=== PATIENT | female | born 1955 | race Caucasian/White ===

== ENCOUNTER 2018-05-22 20:11 | Emergency (ER) | payer OTHER, SELFPAY ==
[2018-05-22 20:12] VITALS: BP 164/84; PULSE 81; RESP 18; TEMP 36.2; O2SAT 97; BMI 23.1
--- NOTE | 2018-05-22 21:50 | EKG12_ITS ---
Test Reason : GEN ILL Blood Pressure : / mmHG Vent. Rate : 062 BPM Atrial Rate : 062 BPM P-R Int : 156 ms QRS Dur : 120 ms QT Int : 440 ms P-R-T Axes : 071 062 024 degrees QTc Int : 446 ms Normal sinus rhythm Right bundle branch block Abnormal ECG Confirmed by BRENT MOLINA ([id number]), manager editorial ALFREDO RODRIGUEZ ([id number]) on 05/27/2018 2:40:12 PM Referred By: Madelyn Barfield Confirmed By:BRENT MOLINA
[2018-05-22 22:13] LABS: Absolute Lymphocyte Count 2.51 X10^3/ul (0.83-4.51); Absolute Neutrophil Count 4.7 X10^3/uL (2.0-7.7); Basophil# 0.02 X10^3/uL; Basophil% 0.3 % (0-1); Eosinophil# 0.25 X10^3/uL; Eosinophils% 3.1 % (0-5); Hematocrit 37.9 % (37-47); Hemoglobin 12.8 g/dl (12.0-15.0); Lymphocyte # 2.51 X10^3/ul (4.0); Lymphocyte % 31.4 % (19-41); Mean Corp Hgb Conc 33.8 g/gl (32-36); Mean Corpuscular Hgb 30.3 pg (27.0-32.0); Mean Corpuscular Volume 89.8 fL (81-99); Mean Platelet Vol. 10.6 fl (6.2-12.0); Monocyte# 0.54 X10^3/uL; Monocyte% 6.8 % (0-10); Neutrophil # 4.66 X10^3/uL (2.7-7.7); Neutrophil % 58.3 % (47-70); Platelet Count 190 K/mm3 (150-450); RBC Distribution Width CV 13.2 % (11.6-14.6); Red Blood Count 4.22 M/mm3 (4.2-5.4)
[2018-05-22 22:19] LABS: POSITIVE COUNT NO; POSITIVE DIFFERENTIAL NO; POSITIVE MORPHOLOGY NO
[2018-05-22 22:33] LABS: AST(SGOT) 21 U/L (15-37); Alanine Aminotransfer ALT/SGPT 22 U/L (13-56); Albumin, Serum 4.1 g/dL (3.2-5.0); Alkaline Phosphatase 91 U/L (45-117); Anion Gap 10 (5-15); BUN 11 mg/dL (7-18); BUN/Creat Ratio 12.3 RATIO (10-20); Bilirubin, Direct 0.11 mg/dL (0.00-0.30); Calcium,Total 9.1 mg/dL (8.5-10.1); Chloride 104 mmol/L (98-107); Creatinine, Serum 0.89 mg/dL (0.55-1.02); EST Glomerular Filtration Rate 68 mL/min (>60); Est Glom Filt Rate - Afr Amer 82 mL/min (>60); Estimated Creatinine Clearance 57.46 ml/min; Globulin 3.6 g/dL (2.2-4.2); Glucose 114 mg/dL (74-106); Lipase 257 U/L (73-393); Potassium 3.6 mmol/L (3.5-5.1); Protein, Total 7.7 g/dL (6.4-8.2); Sodium Level 141 mmol/L (136-145)
[2018-05-22 22:39] LABS: Bacteria 0 SEEN /hpf (None Seen); Mucous, Urine 0 SEEN /hpf (<or=2+)
[2018-05-22] MEDS: Morphine 4 MG/ML Syringe IV (22:39)
[2018-05-22] MEDS: Ondansetron 4 MG/2 ML Vial IV (22:39)
[2018-05-22] MEDS: 0.9% Normal Saline 1,000 ML 1000 ML IV (22:39)
[2018-05-22 22:43] LABS: Color, Urine Yellow (Yellow); Glucose, Dipstick Normal (Normal); Ketone-Dipstick Negative (Negative); Leukocyte Esterase-Dipstick 25 /ul (Negative); Nitrite-Dipstick Negative (Negative); Occult Blood-Urine Negative /ul (Negative); Protein-Dipstick Negative (Negative); Urine Bilirubin Dipstick Negative (Negative); Urine Clarity Clear (Clear); Urine Urobilinogen Normal (Normal)
[2018-05-22 22:51] LABS: Red Blood Cells-Urine 0-5 SEEN /hpf (0-5); Squamous Epithelial Cells - UA 0-5 SEEN /hpf (5-10); White Blood Cells 0-5 SEEN /hpf (0-5)
[2018-05-22 22:52] LABS: Lactic Acid 0.7 mmol/L (0.4-2.0)
--- NOTE | 2018-05-23 01:05 | ED.DEP ---
ED Disposition - Plan for ED Patient: Chief Complaint: Abd Pain Instructions: ED Abdominal Pain Unkn Cause Prescriptions: Hydrocodone Bitart/Apap 5-325 [Brandon 5MG-325MG] 1 tablet PO Q6H PRN PRN 3 Days #8 tablet PRN Reason: Pain Referrals: Hua Munroe MD [Primary Care Provider] -
--- NOTE | 2018-05-23 01:15 | ED.VISSUMM ---
- ER Visit Summary Date of Service: 05/23/18 Chief Complaint: Abdominal pain History of Present Illness: The patient is a 63 F presenting with abdominal pain. This has been ongoing for the past 2 days. She complains of pain in the right upper quadrant after eating. She has had this pain in the past. She denies nausea, vomiting, diarrhea. She has a history of constipation. She denies blood in her stool. She also complains of left upper quadrant pain ?2 days which has been constant. Her mother yesterday and she has been under a lot of stress. She has a history of a previous abdominal aortic stent. History of previous appendectomy and hysterectomy. She has a history of fibromuscular dysplasia and she is followed at [facility]. Physical Examination: Vitals are stable. Patient is afebrile. Alert no acute distress. No tachycardia or hypoxia HEENT exam is unremarkable. Neck is supple. Lungs are clear and equal bilaterally. Heart is regular rate and rhythm. Abdomen is soft right upper and left upper quadrant tenderness with no rebound or guarding. Extremities are unremarkable. Skin is warm and dry. No focal neurologic deficit. Remainder of exam is unremarkable. Emergency Department Course and Treatment: EKG is sinus rate of 62 with right bundle branch block. CBC, chemistries unremarkable. Liver lipase are normal. Urinalysis unremarkable. Troponin is negative. Lactic is normal. Patient is given morphine and Zofran with improvement of her pain. Ultrasound gallbladder is normal. CTA abdomen shows 1. Fusiform infrarenal abdominal aortic aneurysm with a maximum diameter of 3.3 cm. 2. Bilateral iliac stents without leakage. 3. Atherosclerotic changes of the celiac artery, SMA and renal arteries without significant stenosis. 4. Degenerative changes lumbar spine. Patient is aware of these findings. She is resting comfortably on re-evaluation. She will be discharged to follow up with her primary care physician. She is advised to return to ED for worsening complaints. Disposition: Discharge home Impression: Abdominal pain This note was generated with [employer] dictation software. It may contain incorrect words, spelling, and punctuation that were not noted in review of the chart prior to signing ED Disposition - Plan for ED Patient: Chief Complaint: Abd Pain Instructions: ED Abdominal Pain Unkn Cause Prescriptions: Hydrocodone Bitart/Apap 5-325 [[place] 5MG-325MG] 1 tablet PO Q6H PRN PRN 3 Days #8 tablet PRN Reason: Pain Referrals: Hua Munroe MD [Primary Care Provider] -
[2018-05-23] MEDS: Morphine 2 MG/ML Syringe IV (01:17)
[2018-05-23 01:26] VITALS: BP 137/78; PULSE 66; RESP 16; O2SAT 99
== END 2018-05-23 01:28 | disposition home or self-care (01) ==
PROVIDERS: Emergency Provider Emergency Medicine; Family Provider Internal Medicine; PCP Internal Medicine
DX: R10.11 Right upper quadrant pain (principal); R10.12 Left upper quadrant pain; I45.10 Unspecified right bundle-branch block; I71.4 Abdominal aortic aneurysm, without rupture; K59.00 Constipation, unspecified; K21.9 Gastro-esophageal reflux disease without esophagitis; I10 Essential (primary) hypertension; E78.00 Pure hypercholesterolemia, unspecified; F32.9 Major depressive disorder, single episode, unspecified; I77.3 Arterial fibromuscular dysplasia; Z90.710 Acquired absence of both cervix and uterus; Z79.82 Long term (current) use of aspirin; Z79.899 Other long term (current) drug therapy; Z72.0 Tobacco use
CPT/HCPCS: 74175; 76705; 80048; 80076; 81001; 83605; 83690; 84484; 85025; 93005; 96361; 96374; 96375; 96376; 99285; Q9967; A4216; J2405

== ENCOUNTER → 2019-06-11 07:43 | Outpatient (CLI) | payer MEDICARE, OTHER, SELFPAY ==
[2019-05-27 07:49] VITALS: BMI 23.1
--- NOTE | 2019-06-11 07:58 | AAVD_ITS ---
Reason For Study: AAA Aorta Measurements Aorta Doppler Measurements Proximal aorta measures1.29 x 1.3cm. in cross- Peak systolic flow velocities within the proximal sectional axis. aorta measure 67.7 cm/sec. Proximal aorta measures1.37cm. in longitudinal Peak systolic flow velocities within the mid aorta axis. measure 38.0 cm/sec. Mid aorta measures3.76 x 3.52cm. in cross- Peak systolic flow velocities within the distal sectional axis. aorta measure 30.3 cm/sec. Mid aorta measures3.41cm. in longitudinal axis. Distal aorta measures1.94 x 2.37cm. in cross- sectional axis. Distal aorta measures1.83cm. in longitudinal axis. Left Iliac Artery Left iliac artery measures .68 x .7 cm. in the longitudinal axis. Left iliac artery measures .73 cm. in the cross-sectional axis. Peak systolic velocity in the left iliac artery measures 130.8 cm/sec. Right Iliac Artery Right iliac artery measures .73 x .7 cm. in the cross-sectional axis. Right iliac artery measures .69 cm. in the longitudinal axis. Peak systolic velocity in the right iliac artery measures 87.5 cm/sec. Procedure Aorta IVC Iliac vasculature or bypass grafts [id number]. The exam was diagnostic. Exam performed in department. Interpretation Summary Infra renal abdominal aortic aneurysm 3.76 x 3.52 cm over a length of 7.2 cm Diminished flow velocity within the mid and distal aorta likely secondary to the presence of the aneurysm Left common iliac 0.68 x 0.7cm normal Right common iliac 0.73 x 0.7 cm normal Ordering Physician: Tommy Muhammad Performed By: Lino Escobedo RVT
== END ==
PROVIDERS: Family Provider Internal Medicine; PCP Internal Medicine; Referring Provider Internal Medicine Cardiovascular Disease; Visit Provider Internal Medicine Cardiovascular Disease
DX: I71.4 Abdominal aortic aneurysm, without rupture (principal); I25.10 Atherosclerotic heart disease of native coronary artery without angina pectoris; Z01.810 Encounter for preprocedural cardiovascular examination; I45.10 Unspecified right bundle-branch block; I73.9 Peripheral vascular disease, unspecified; I10 Essential (primary) hypertension; F17.200 Nicotine dependence, unspecified, uncomplicated; E78.5 Hyperlipidemia, unspecified
CPT/HCPCS: 93306; 93978

== ENCOUNTER 2020-06-03 07:55 | Day surgery (SDC) | payer MEDICARE, OTHER, SELFPAY ==
[2020-05-26 10:21] VITALS: BMI 26.1
--- NOTE | 2020-05-26 11:34 | RAD_ITS ---
HISTORY: CAD, ASHD HX. NO CHEST COMPLAINTS TODAY. PRE-HEART CATH. XR Chest 2 Views TECHNIQUE: Frontal and lateral views of chest. # of images incl. paperwork: 2 COMPARISON: 08/18/2012, FINDINGS: LINES: None. CARDIOVASCULAR STRUCTURES: Normal heart size. Pulmonary vasculature appears normal. LUNGS: Hyperinflated lungs. No confluent areas of acute consolidation. PLEURA: No pleural effusions or pneumothorax. BONES: No acute osseous abnormality of the thorax. RAD/Chest PA and Lateral IMPRESSION: 1. No acute cardiopulmonary disease. 2. Hyperinflated lungs. at 1750 Reported and signed by: Abbe Lucio MD Electronically Signed: Abbe Lucio MD at 17:48 EDT Tel , Service support ,
[2020-05-26 12:44] LABS: Absolute Lymphocyte Count 1.81 X10^3/uL (0.83-4.51); Basophil# 0.04 X10^3/uL; Basophil% 0.5 % (0-1); Eosinophil# 0.22 X10^3/uL; Eosinophils% 2.9 % (0-5); Hematocrit 39.7 % (37-47); Hemoglobin 13.3 g/dL (12.0-15.0); Lymphocyte # 1.81 X10^3/ul (4.0); Lymphocyte % 23.5 % (19-41); Mean Corp Hgb Conc 33.5 g/dL (32-36); Mean Corpuscular Hgb 30.5 pg (27.0-32.0); Mean Corpuscular Volume 91.1 fL (81-99); Mean Platelet Vol. 10.7 fl (6.2-12.0); Monocyte# 0.57 X10^3/uL; Monocyte% 7.4 % (0-10); NRBC Flagged by Analyzer 0 % (0-5); Neutrophil # 5.04 X10^3/uL (2.7-7.7); Neutrophil % 65.3 % (47-70); Platelet Count 211 K/mm3 (150-450); RBC Distribution Width CV 12.4 % (11.6-14.6); RBC Distribution Width SD 41.2 fl (35.1-43.9); Red Blood Count 4.36 M/mm3 (4.2-5.4); White Blood Count 7.7 K/mm3 (4.4-11.0)
[2020-05-26 13:05] LABS: Anion Gap 3 (5-15); BUN 13 mg/dL (7-18); BUN/Creat Ratio 16.9 RATIO (10-20); Calcium,Total 9.4 mg/dL (8.5-10.1); Chloride 105 mmol/L (98-107); Creatinine, Serum 0.77 mg/dL (0.55-1.02); EST Glomerular Filtration Rate 80 mL/min (>60); Est Glom Filt Rate - Afr Amer 96 mL/min (>60); Glucose 95 mg/dL (74-106); Potassium 4.2 mmol/L (3.5-5.1); Sodium Level 139 mmol/L (136-145)
[2020-06-02 06:59] VITALS: BMI 26.1
--- NOTE | 2020-06-03 10:20 | CL.D_ITS ---
Patient Name: JOHANNE KU Study Date: 06/03/2020 Performing: Tommy Muhammad MD Ht: 64.96 inches 165 cm : 1955 Wt: 156.53 lbs 71 kg Age: 65 Gender: female BSA: 1.78 PROCEDURE(S) PERFORMED [id number]/LV CLINICAL PROFILE AND INDICATIONS Indications: Suspected CAD Heart Failure: None Stress/Imaging Stress/Image Study Performed: No Angina Classification Anginal Classification w/in 2 Weeks: CCS I CAD Presentations: Unstable angina. CONCLUSIONS Mild to moderate CAD with no evidence of high-grade stenosis. RECOMMENDATIONS Medical therapy DESCRIPTION OF PROCEDURE The patient arrived to the procedure lab. The risks and benefits of the procedure as well as a full d escription of our services here and current unavailability of surgical backup were fully explained to the patient and/or their significant other prior to the catheterization. The Timeout was completed, verifying the correct patient and procedure. The patient's procedural site was prepped and draped in the usual fashion. Local anesthetic was given subcutaneously to left radial region with Lidocaine 2%. Using a modified Seldinger technique, arterial access was obtained via the right radial artery, a 6F r sheath was inserted. Right Coronary Artery selective angiography was then performed in multiple vi ews using a 5 Fr. 4.0 Upson catheter. Left Coronary Artery selective angiography was performed in mul tiple views using a 5 Fr. 4.0 Upson catheter. Left Ventriculography was performed in TOBAR projection u sing a 5 Fr. Pigtail catheter. LV to AO pullback pressures were then recorded.The arterial sheath was pulled and a TR Band was applied for hemostasis CORONARY ANGIOGRAPHY DOMINANCE: Right Dominant LEFT HEART ASSESSMENT Left Ventricular Ejection Fraction: by LV Gram 60 % Normal LV wall motion Normal Left Ventricular systolic function LEFT MAIN: Angiographically normal LEFT ANTERIOR DESCENDING ARTERY: Moderate luminal irregularities up to 50% CIRCUMFLEX ARTERY: Mild luminal irregularities less than 30% RIGHT CORONARY ARTERY: PROX RCA: Moderate luminal irregularities up to 50% DISTAL RCA: Mild luminal irregularities less than 30% COMPLICATIONS No Complications PROCEDURE MEDICATIONS Versed 1 mg IV Fentanyl 50 mcg IV Oxygen: 2 L/min via nasal cannula Heparin given IA 06/03/2020 10:00:56 Verapamil 2.5mg, Ntg 100mcgs, 2000 units of Heparin given IA 06/03/2020 10:00:56 SUMMARY OF HEMODYNAMIC DATA Time AIR REST ECG 08:18:45 AO 98/17 (33) SA 10:02:58 AO 124/77 (98) 10:03:12 LV 158/10, 22 10:07:53 LV 155/9, 23 10:08:00 LV 152/14, 25 10:08:35 LV 157/15, 25 10:08:42 LVp 156/16, 25 10:08:49 AOp 0/-22 (53) 10:08:54 AO 159/78 (112) 10:09:18 Signed By Tommy Muhammad MD On 06/03/2020 10:19:42 Tommy Muhammad MD
== END 2020-06-03 12:15 | disposition home or self-care (01) ==
LOC: CLSP 07:56
PROVIDERS: PCP Internal Medicine; Referring Provider Internal Medicine Cardiovascular Disease; Visit Provider Internal Medicine Cardiovascular Disease
DX: I25.10 Atherosclerotic heart disease of native coronary artery without angina pectoris (principal); I10 Essential (primary) hypertension; I73.9 Peripheral vascular disease, unspecified; F17.200 Nicotine dependence, unspecified, uncomplicated; R07.9 Chest pain, unspecified; I71.4 Abdominal aortic aneurysm, without rupture; E78.5 Hyperlipidemia, unspecified
CPT/HCPCS: 36415; 71046; 80048; 85025; 93458; 99152; 99153; J7040; Q9967; C1769; C1894

== ENCOUNTER → 2020-06-06 07:52 | Outpatient (CLI) | payer MEDICARE, OTHER, SELFPAY ==
[2020-05-26 10:21] VITALS: BMI 26.1
[2020-06-02 06:59] VITALS: BMI 26.1
--- NOTE | 2020-06-06 07:52 | US_ITS ---
PROCEDURES: ULTRASOUND AORTA REASON FOR EXAM: Female, 65 years old. HX OF AAA TECHNIQUE: Ultrasound evaluation of the aorta was performed with real-time and static etienne-scale imaging. COMPARISON: None. FINDINGS: There is atherosclerotic plaque formation of the abdominal aorta. Aorta measures: Proximal 2.3 cm. Middle 3.8 cm. Distal 1.4 cm. Aorta measure transversely: Proximal 1.8 cm. Middle 3.9 cm. Distal 2.1 cm. Right iliac artery measures: 0.8 cm. Right iliac artery measure transversely: 0.8 cm. Left iliac artery measures: 0.8 cm. Left iliac artery measure transversely: 0.8 cm. Fusiform infrarenal abdominal aortic aneurysm with a transverse dimension of 3.9 cm.. US/Aorta IMPRESSION: Fusiform infrarenal abdominal aortic aneurysm with a transverse dimension of 3.9 cm. Electronically Signed: Shaheen Jones, at 10:59 EDT , Service support ,
--- NOTE | 2020-06-06 08:26 | CDU_ITS ---
Reason For Study: FMD Rt. Velocities/BP Lt. Velocities/BP Prox CCA 70.8/21.3 cm/sec. Prox CCA 87.7/26.5 cm/sec. Mid CCA 60.4/21.3 cm/sec. Mid CCA 63.0/23.9 cm/sec. Dist CCA 52.6/21.3 cm/sec. Dist CCA 52.5/19.9 cm/sec. Prox ICA 113.9/39.5 cm/sec. Prox ICA 96.9/38.2 cm/sec. Mid ICA 99.5/34.3 cm/sec. Mid ICA 117.7/38.2 cm/sec. Dist ICA 94.3/42.1 cm/sec. Dist ICA 100.8/36.9 cm/sec. Rt. ICA/CCA = 1.89. Lt. ICA/CCA = 1.87. Prox ECA 89.1/10.8 cm/sec. Prox ECA 66.9/12.1 cm/sec. Rt. Vert. 63.0/18.6 cm/sec. Lt. Vert. 53.9/14.7 cm/sec. Right Extracranial There is intimal thickening but no significant atherosclerotic plaque noted in the right common carotid artery. There is heterogeneous, irregular atherosclerotic plaque noted in the right internal carotid artery. There is intimal thickening but no significant atherosclerotic plaque noted in the right external carotid artery. Antegrade flow is noted in the right vertebral artery. There is heterogeneous, irregular atherosclerotic plaque noted in the right bulb. Left Extracranial There is homogeneous, smooth atherosclerotic plaque noted in the left common carotid artery. There is intimal thickening but no significant atherosclerotic plaque noted in the left internal carotid artery. There is intimal thickening but no significant atherosclerotic plaque noted in the left external carotid artery. Antegrade flow is noted in the left vertebral artery. There is heterogeneous, irregular atherosclerotic plaque noted in the left bulb. Procedure Carotid Duplex 74087. Exam performed in department. Interpretation Summary Irregular calcific plague distal right common carotid and proximal right internal and external carotids <50% stenosis right internal carotid <50% stensosis right external carotid Intimal thickening left proximal internal carotid with <50% stenosis <50% stenosis left external carotid Patent, antegrade vertebrals bilaterally Ordering Physician: Tommy Muhammad Referring Physician: Hua Munroe M.D. Performed By: Deana Mars RVT and Student
== END ==
PROVIDERS: PCP Internal Medicine; Referring Provider Internal Medicine Cardiovascular Disease; Visit Provider Internal Medicine Cardiovascular Disease
DX: I73.9 Peripheral vascular disease, unspecified (principal); I71.4 Abdominal aortic aneurysm, without rupture; I25.10 Atherosclerotic heart disease of native coronary artery without angina pectoris; E78.5 Hyperlipidemia, unspecified; I10 Essential (primary) hypertension; R42 Dizziness and giddiness; F17.200 Nicotine dependence, unspecified, uncomplicated; M25.531 Pain in right wrist
CPT/HCPCS: 76706; 76775; 93880; 93931

== ENCOUNTER → 2020-08-24 08:59 | Outpatient (CLI) | payer MEDICARE, OTHER, SELFPAY ==
[2020-06-06 15:17] VITALS: BMI 26.1
--- NOTE | 2020-08-24 09:03 | ART_ITS ---
Reason For Study: OCCLUSION OF UPPER EXTREMITY RADIAL ARTERY Procedure A bilateral upper extremity continuous wave Doppler with analog waveform analysis and segmental pressures. Wrist/Brachial Index only. Left Segmental Pressures Left brachial= 118mmHg. Left radial= 130mmHg. Left ulnar= 144mmHg. The left radial waveforms are triphasic. The left ulnar waveforms are triphasic. Right Segmental Pressures Right brachial= 118mmHg. Right radial= 135mmHg. Right ulnar= 134mmHg. The right radial waveforms are monophasic. The right ulnar waveforms are triphasic. Indices The right wrist-brachial index is 1.14. The left wrist-brachial index is 1.22. Interpretation Summary Bilateral normal upper extremity with triphasic flow and WBI 1.14 and 1.22. Ordering Physician: Joon Serna Referring Physician: Hua Munroe Performed By: Aixa Zhao RVT, [facility]
--- NOTE | 2020-08-24 09:03 | ADUL_ITS ---
Reason For Study: OCCLUSION OF UPPER EXTREMITY RADIAL ARTERY RIGHT Right Subclavian velocity = 62.2 cm/sec. Right Axillary velocity = 50.1 cm/sec. Right Brachial velocity = 116.1 cm/sec. Right Radial velocity = 55.5 cm/sec. Right Ulnar velocity = 86.7 cm/sec. Interpretation Summary Right arm with no stenosis. Ordering Physician: Joon Serna Referring Physician: Hua Munroe Performed By: Aixa Zhao, MARCOS, RVT
== END ==
PROVIDERS: PCP Internal Medicine; Referring Provider Surgery Vascular Surgery; Visit Provider Surgery Vascular Surgery
DX: I74.2 Embolism and thrombosis of arteries of the upper extremities (principal)
CPT/HCPCS: 93922; 93926

== ENCOUNTER → 2021-08-17 09:07 | Outpatient (CLI) | payer MEDICARE, OTHER, SELFPAY ==
--- NOTE | 2021-08-17 09:11 | ART_ITS ---
Reason For Study: PVD Procedure A bilateral lower extremity continuous wave Doppler with analog waveform analysis and ankle brachial indexes. Left Segmental Pressures Left brachial= 123mmHg. Left posterior tibial artery = 127mmHg. Left dorsalis pedis artery = 133mmHg. The left dorsalis pedis waveforms are triphasic. The left posterior tibial artery waveforms are triphasic. Right Segmental Pressures Right brachial= 121mmHg. Right posterior tibial artery = 128mmHg. Right dorsalis pedis artery = 135mmHg. The right dorsalis pedis waveforms are triphasic. The right posterior tibial artery waveforms are triphasic. Indices The right ankle brachial index by the dorsalis pedis is 1.10. The right ankle brachial index by the posterior tibial artery is 1.04. The left ankle brachial index by the dorsalis pedis is 1.08. The left ankle brachial index by the posterior tibial artery is 1.03. VL/Ankle Brachial Index Interpretation Summary Bilateral lower extremities with no evidence of occlusive disease at rest. With bilateral triphasic flow and an KELTON 1.1 and 1.08. Ordering Physician: Joon Serna Referring Physician: Hua Munroe M.D. Performed By: Deana Mars RVT
--- NOTE | 2021-08-17 09:11 | AAVD_ITS ---
Reason For Study: AAA Aorta Measurements Aorta Doppler Measurements Proximal aorta measures2.35 x 2.36cm. in cross- Peak systolic flow velocities within the proximal sectional axis. aorta measure 52.4 cm/sec. Proximal aorta measures1.27cm. in longitudinal Peak systolic flow velocities within the mid aorta axis. measure 72.9 cm/sec. Mid aorta measures4.19 x 4.37cm. in cross- Peak systolic flow velocities within the distal sectional axis. aorta measure 24.9 cm/sec. Mid aorta measures4.14cm. in longitudinal axis. Distal aorta measures2.83 x 2.89cm. in cross- sectional axis. Distal aorta measures2.81cm. in longitudinal axis. Mural thrombus noted in the Aorta mid-distal. Mid true lumen, 3.38 x 3.43 x 3.24 cm. Distal true lumen, 1.88 x 2.28 x 1.86 cm. Left Iliac Artery Left iliac artery measures 0.76 x 0.76 cm. in the cross-sectional axis. Left iliac artery measures 0.73 cm. in the longitudinal axis. Peak systolic velocity in the left iliac artery measures 81.4 cm/sec. Right Iliac Artery Right iliac artery measures 0.65 x 0.68 cm. in the cross-sectional axis. Right iliac artery measures 0.66 cm. in the longitudinal axis. Peak systolic velocity in the right iliac artery measures 103.4 cm/sec. Procedure Aorta IVC Iliac vasculature or bypass grafts [id number]. Exam performed in department. VL/Abd Aortic/IVC Duplex scan Interpretation Summary Aortic aneurysm measuring 4.4 cm. Ordering Physician: Joon Serna Referring Physician: Hua Munroe M.D. Performed By: Deana Mars RVT
== END ==
PROVIDERS: PCP Internal Medicine; Visit Provider Surgery Vascular Surgery
DX: I73.9 Peripheral vascular disease, unspecified (principal); I71.4 Abdominal aortic aneurysm, without rupture; Z86.718 Personal history of other venous thrombosis and embolism
CPT/HCPCS: 93922; 93978

== ENCOUNTER → 2022-09-06 | Outpatient (CLI) | payer MEDICARE, OTHER, SELFPAY ==
--- NOTE | 2022-09-06 08:52 | AAVD_ITS ---
Reason For Study: AAA Aorta Measurements Aorta Doppler Measurements Proximal aorta measures2.07 x 2.07cm. in cross- Peak systolic flow velocities within the proximal sectional axis. aorta measure 67.8 cm/sec. Proximal aorta measures2.09cm. in longitudinal Peak systolic flow velocities within the mid aorta axis. measure 48.3 cm/sec. Mid aorta measures4.51 x 4.61cm. in cross- Peak systolic flow velocities within the distal sectional axis. aorta measure 27.4 cm/sec. Mid aorta measures4.16cm. in longitudinal axis. Distal aorta measures2.90 x 2.87cm. in cross- sectional axis. Distal aorta measures2.94cm. in longitudinal axis. Mural thrombus noted in the Aorta mid-distal. Mid true lumen, 3.38 x 4.48 x 3.10 cm. Left Iliac Artery Left iliac artery measures 0.84 x 0.83 cm. in the cross-sectional axis. Left iliac artery measures 0.79 cm. in the longitudinal axis. Peak systolic velocity in the left iliac artery measures 105.7 cm/sec. Right Iliac Artery Right iliac artery measures 0.75 x 0.72 cm. in the cross-sectional axis. Right iliac artery measures 0.65 cm. in the longitudinal axis. Peak systolic velocity in the right iliac artery measures 94.8 cm/sec. VL/Abd Aortic/IVC Duplex scan Interpretation Summary Aortic aneurysm 4.5 x 4.6cm. Ordering Physician: Joon Serna Referring Physician: Hua Munroe M.D. Performed By: Deana Mars RVT
--- NOTE | 2022-09-06 08:52 | ART_ITS ---
Reason For Study: PVD Procedure A bilateral lower extremity continuous wave Doppler with analog waveform analysis and ankle brachial indexes. Left Segmental Pressures Left brachial= 137mmHg. Left posterior tibial artery = 142mmHg. Left dorsalis pedis artery = 148mmHg. Left digit = 126 mmHg. The left dorsalis pedis waveforms are biphasic. The left posterior tibial artery waveforms are biphasic. Right Segmental Pressures Right brachial= 142mmHg. Right posterior tibial artery = 159mmHg. Right dorsalis pedis artery = 140mmHg. Right digit = 114 mmHg. The right dorsalis pedis waveforms are biphasic. The right posterior tibial artery waveforms are triphasic. Indices The right ankle brachial index by the dorsalis pedis is 0.99. The right ankle brachial index by the posterior tibial artery is 1.12. The right digital-brachial index is 0.80. The left ankle brachial index by the dorsalis pedis is 1.04. The left ankle brachial index by the posterior tibial artery is 1.00. The left digital-brachial index is 0.89. VL/Ankle Brachial Index Interpretation Summary Bilateral triphasic flow and adriana 1.12 and 1.04. Ordering Physician: Joon Serna Referring Physician: Hua Munroe M.D. Performed By: Deana Mars RVT
--- NOTE | 2022-09-06 08:52 | CDU_ITS ---
Reason For Study: Carotid stenosis Rt. Velocities/BP Lt. Velocities/BP Prox CCA 65.5/22 cm/sec. Prox CCA 82.6/26.2 cm/sec. Mid CCA 53.2/19.2 cm/sec. Mid CCA 79/20 cm/sec. Dist CCA 57.9/22 cm/sec. Dist CCA 75.3/18.8 cm/sec. Prox ICA 146.7/55.3 cm/sec. Prox ICA 80.2/26.2 cm/sec. Mid ICA 106.5/44.4 cm/sec. Mid ICA 92.5/39.7 cm/sec. Dist ICA 95.5/33.4 cm/sec. Dist ICA 96.1/37.2 cm/sec. Rt. ICA/CCA = 2.53. Lt. ICA/CCA = 1.22. Prox ECA 86.3/19.2 cm/sec. Prox ECA 80.2/12.6 cm/sec. Rt. Vert. 90/24.9 cm/sec. Lt. Vert. 46.5/21.2 cm/sec. Right Extracranial There is intimal thickening but no significant atherosclerotic plaque noted in the right common carotid artery. There is heterogeneous, irregular atherosclerotic plaque noted in the right internal carotid artery. There is heterogeneous, irregular atherosclerotic plaque noted in the right external carotid artery. Antegrade flow is noted in the right vertebral artery. Left Extracranial There is intimal thickening but no significant atherosclerotic plaque noted in the left common carotid artery. There is homogeneous, smooth atherosclerotic plaque noted in the left internal carotid artery. There is homogeneous, smooth atherosclerotic plaque noted in the left external carotid artery. Antegrade flow is noted in the left vertebral artery. Procedure Carotid Duplex 65854. This is a Carotid Duplex examination using B-mode, color flow and specral Doppler. Exam performed in department. VL/Carotid Duplex Ultrasound Interpretation Summary Moderate (50-69%) stenosis right extracranial internal carotid. Mild (<50%) zachariah nosis left extracranial internal carotid. Flow within the vertebral arteries is antegrade bilaterally. Ordering Physician: Joon Serna Referring Physician: Hua Munroe M.D. Performed By: Deana Mars RVT
== END | disposition home or self-care (01) ==
LOC: CVS 08:50
PROVIDERS: PCP Internal Medicine; Visit Provider Surgery Vascular Surgery
DX: I73.9 Peripheral vascular disease, unspecified (principal); I72.8 Aneurysm of other specified arteries; Z86.718 Personal history of other venous thrombosis and embolism; I65.23 Occlusion and stenosis of bilateral carotid arteries
CPT/HCPCS: 93880; 93922; 93978

== ENCOUNTER → 2022-10-30 | Outpatient (CLI) | payer MEDICARE, SELFPAY ==
--- NOTE | 2022-10-30 | CYSPIN_PTH ---
PATIENT: JOHANNE KU LOC: [facility] U#:[id number] AGE/SX: 67/F ROOM: RE10/30/[address]: Dr. Deborah Boudreaux MD : 1955 BED: DIS: 10/30/2022 SPEC #: [id number] RECD: 10/31/22 08:42 STATUS: TIFFANIE NICHOLS #: [id number] MAGGIE: 10/30/22 00:[address]: Deborah Boudreaux DEPT: CYTOLOGY RECD BY: Keshav Nascimento ENTERED: 10/31/22 08:43 SP TYPE: CYSPIN FL OTHR DR: Dr. Hua Munroe MD Tissues: Urine Procedures: Pap Stain (control) Special Stain Group II Cytospin Fluid HEADER OPERATION: Not noted PRE-OP DIAGNOSIS: Gross hematuria TISSUE SUBMITTED: Urine for cytology DIAGNOSIS CYTOLOGY Urine for cytology (cytospin): Negative for high-grade urothelial carcinoma (OHGUC), Karen System Category II. See comment. SJ:allen 10/31/2022 COMMENT Red blood cells are noted in the specimen. The Karen System for urine cytology diagnostic categorization was used in the evaluation of this case. CYTOLOGY STUDY Slides are reviewed. CYTOLOGY GROSS Received is 20 ml of gold clear fluid labeled with the patient's name and and designated per the requisition as urine. Submitted for cytology preparation. / allen 10/30/2022 TC:5 CPT: 41097
[2022-10-30 12:22] LABS: Anion Gap 5 (5-15); BUN 13 mg/dL (7-18); Calcium,Total 9.2 mg/dL (8.5-10.1); Chloride 106 mmol/L (98-107); Creatinine, Serum 0.81 mg/dL (0.55-1.02); EST Glomerular Filtration Rate 74 mL/min (>60); Est Glom Filt Rate - Afr Amer 90 mL/min (>60); Glucose 111 mg/dL (74-106); Potassium 4.3 mmol/L (3.5-5.1); Sodium Level 140 mmol/L (136-145)
[2022-10-30 18:14] LABS: Cytology, Body Fluid / CSF SEE PATHOLOGY REPORT
== END | disposition home or self-care (01) ==
PROVIDERS: PCP Internal Medicine; Referring Provider Urology; Visit Provider Urology
DX: R31.0 Gross hematuria (principal)
CPT/HCPCS: 36415; 80048; 88108; 88313

== ENCOUNTER → 2022-11-05 | Outpatient (CLI) | payer MEDICARE, SELFPAY ==
--- NOTE | 2022-11-05 18:00 | CT_ITS ---
INDICATION: GROSS HEMATURIA EXAMINATION: CT ABDOMEN AND PELVIS WITH AND WITHOUT CONTRAST - CT Abdomen And Pelvis WO/W Contrast Injection TECHNIQUE: Helically acquired images were obtained of the abdomen and pelvis both before and after IV contrast. Venous and delayed postcontrast phases obtained. A radiation dose optimization technique was used for this scan. IV Contrast dosage and agent: 100 mL Isovue-370 Oral contrast: None. COMPARISON: May 22, 2018. CT. August 17, 2021 ultrasound FINDINGS: LOWER CHEST: Lung bases are clear. No cardiomegaly or pericardial effusion. KIDNEYS AND URETERS: Normal renal size and position. No hydronephrosis. No nephrolithiasis. Normal renal cortical appearance without cystic or solid mass. No urothelial thickening along the renal pelvis or ureters on delayed phase. Portion of the distal right ureter is not opacified, limiting evaluation. LIVER: Homogeneous. No focal mass. GALLBLADDER AND BILIARY TREE: No calcified gallstones. No gallbladder distension or wall edema. No intra- or extrahepatic biliary ductal dilation. PANCREAS: No focal cystic or solid mass. SPLEEN: Normal size without focal cystic or solid mass. ADRENAL GLANDS: No nodules. PERITONEUM: No ascites or free air. No other fluid collection. BOWEL: No evidence of acute appendicitis. No stomach or bowel distension. No focal inflammatory change. LYMPH NODES: No enlarged mesenteric or retroperitoneal lymph nodes. VESSELS: Aortic atherosclerosis with infrarenal fusiform aneurysmal dilatation to 4.7 cm, increased from 3.9 cm on May 22, 2018, beginning immediately inferior to the renal arteries spanning a length of 6.3 cm terminating at level of prior inferior aortic repair. No evidence of aortic rupture.. URINARY BLADDER: Nondistended. Bladder wall evaluation is limited by beam hardening artifact from hip arthroplasty.. REPRODUCTIVE ORGANS: No evidence of pelvic masses. Anterior pelvic evaluation limited by beam hardening artifact with suggestion of prior hysterectomy. ABDOMINAL WALL: No discrete abdominal or pelvic wall hernia. BONES: No lytic or blastic abnormality. Lower lumbar facet arthropathy. Levocurvature lumbar spine. Bilateral hip arthroplasty. CT/CT Abd/Pelvis W/WO Contrast IMPRESSION: No nephrolithiasis or suspicious finding for upper tract neoplasm. Distal right ureter evaluation is limited by lack of contrast enhancement. Bladder evaluation limited by beam hardening artifact from hip arthroplasty. Interval enlargement of infrarenal aortic aneurysm to 4.7 cm ( previously 3.9 cm on May 22, 2018 CT and 4.4 cm August 17, 2021 ultrasound) terminating just cephalad to what appears to be prior aortic repair. Electronically Signed: Kaiser Morgan MD at 5:32 EST ,
== END | disposition home or self-care (01) ==
LOC: CT 17:39
PROVIDERS: PCP Internal Medicine; Referring Provider Urology; Visit Provider Urology
DX: R31.0 Gross hematuria (principal)
CPT/HCPCS: 74178; Q9967

== ENCOUNTER → 2023-05-06 | Outpatient (CLI) | payer MEDICARE, SELFPAY ==
--- NOTE | 2023-05-06 16:51 | CT_ITS ---
EXAM: CT ABDOMEN AND PELVIS WITH INTRAVENOUS CONTRAST CLINICAL INDICATION: LOWER ABD PAIN TECHNIQUE: Helically acquired images were obtained of the abdomen and pelvis with intravenous contrast. This CT exam was performed using one or more of the following dose reduction techniques: automated exposure control, adjustment of the mA and/or kV according to patient size, and/or use of iterative reconstruction technique. CONTRAST: Oral and amp;amp; IV Readi-CAT and amp;amp; 100mL Isovue-300 COMPARISON: CT Abdomen Pelvis dated 11/05/2022 FINDINGS: LOWER THORAX: Normal. Lung bases are clear. No cardiomegaly. No pericardial effusion. ABDOMEN: LIVER: Normal. Homogeneous. No focal mass. PANCREAS: Normal. No focal cystic or solid mass. SPLEEN: Normal. Normal size without focal cystic or solid mass. ADRENALS: Normal. No nodules. KIDNEYS AND URETERS: Normal. Normal renal size and position. No hydronephrosis. STOMACH AND BOWEL: Mild stool burden within the large bowel. PELVIS: APPENDIX: No evidence of acute appendicitis. BLADDER: Urinary bladder is not adequately visualized secondary to significant artifacts from the bilateral hip prostheses. REPRODUCTIVE: Uterus is absent. ABDOMEN and PELVIS: INTRAPERITONEAL SPACE: Normal. No ascites or other fluid collection. No free air. BONES/JOINTS: See above. SOFT TISSUES: Normal. No discrete abdominal or pelvic wall hernia. VASCULATURE: Stable 4.6 cm infrarenal abdominal aortic aneurysm extending to the prior area of aortic repair at the bifurcation. Aneurysm measures 8 cm in length. LYMPH NODES: Normal. No enlarged lymph nodes. CT/Abdomen/Pelvis WITH Contrast IMPRESSION: 1. Stable 4.6 cm infrarenal abdominal aortic aneurysm. 2. Constipation. Electronically Signed: Todd Burleson MD at 16:58 EDT ,
[2023-05-06 17:18] LABS: CREATININE FINGERSTICK < 0.9 mg/dL (0.55-1.02); EGFR FINGERSTICK > 60.0000 mL/min (>60)
== END | disposition home or self-care (01) ==
LOC: CT 16:50
PROVIDERS: PCP Internal Medicine; Referring Provider Physician Assistant Surgical; Visit Provider Physician Assistant Surgical
DX: R10.30 Lower abdominal pain, unspecified (principal)
CPT/HCPCS: 74177; Q9967

== ENCOUNTER → 2023-09-10 | Outpatient (CLI) | payer MEDICARE, SELFPAY ==
--- NOTE | 2023-09-10 08:55 | AAVD_ITS ---
Reason For Study: AAA Aorta Measurements Aorta Doppler Measurements Proximal aorta measures2.14 x 2.12cm. in cross- Peak systolic flow velocities within the proximal sectional axis. aorta measure 65.1 cm/sec. Proximal aorta measures2.10cm. in longitudinal Peak systolic flow velocities within the mid aorta axis. measure 68.7 cm/sec. Mid aorta measures4.64 x 4.39cm. in cross- Peak systolic flow velocities within the distal sectional axis. aorta measure 20.7 cm/sec. Mid aorta measures6.43cm. in longitudinal axis. Distal aorta measures3.00 x 3.15cm. in cross- sectional axis. Distal aorta measures2.96cm. in longitudinal axis. Left Iliac Artery Left iliac artery measures 0.77 x 0.75 cm. in the cross-sectional axis. Left iliac artery measures 0.74 cm. in the longitudinal axis. Peak systolic velocity in the left iliac artery measures 114.9 cm/sec. Right Iliac Artery Right iliac artery measures 0.83 x 0.83 cm. in the cross-sectional axis. Right iliac artery measures 0.81 cm. in the longitudinal axis. Peak systolic velocity in the right iliac artery measures 114.9 cm/sec. VL/Abd Aortic/IVC Duplex scan Interpretation Summary 4.64cm aortic aneurysm. Ordering Physician: MD Joon Serna Referring Physician: Hua Munroe M.D. Performed By: Deana Mars RVT
--- NOTE | 2023-09-10 08:55 | ART_ITS ---
Reason For Study: Atherosclerosis Procedure A bilateral lower extremity continuous wave Doppler with analog waveform analysis and ankle brachial indexes. Left Segmental Pressures Left brachial= 103mmHg. Left posterior tibial artery = 132mmHg. Left dorsalis pedis artery = 149mmHg. Left digit = 88 mmHg. The left dorsalis pedis waveforms are biphasic. The left posterior tibial artery waveforms are biphasic. Right Segmental Pressures Right brachial= 123mmHg. Right posterior tibial artery = 144mmHg. Right dorsalis pedis artery = 124mmHg. Right digit = 99 mmHg. The right dorsalis pedis waveforms are biphasic. The right posterior tibial artery waveforms are triphasic. Indices The right ankle brachial index by the dorsalis pedis is 1.01. The right ankle brachial index by the posterior tibial artery is 1.07. The right digital-brachial index is 0.80. The left ankle brachial index by the dorsalis pedis is 1.21. The left ankle brachial index by the posterior tibial artery is 1.07. The left digital-brachial index is 0.72. VL/Ankle Brachial Index Interpretation Summary No evidence occlusive disease at rest with KELTON 1.07 and 1.21. Ordering Physician: Joon Serna Referring Physician: Hua Munroe M.D. Performed By: Deana Mars RVT
--- NOTE | 2023-09-10 08:55 | CDU_ITS ---
Reason For Study: Carotid stenosis Rt. Velocities/BP Lt. Velocities/BP Prox CCA 68.3/17.3 cm/sec. Prox CCA 77.7/20 cm/sec. Mid CCA 65.5/20.1 cm/sec. Mid CCA 64.4/20 cm/sec. Dist CCA 55.1/21.1 cm/sec. Dist CCA 63/18.8 cm/sec. Prox ICA 171.9/64.3 cm/sec. Prox ICA 82.6/24.9 cm/sec. Mid ICA 122.9/49.9 cm/sec. Mid ICA 101/38.9 cm/sec. Dist ICA 97.4/37.1 cm/sec. Dist ICA 97.4/40.7 cm/sec. Rt. ICA/CCA = 2.62. Lt. ICA/CCA = 1.57. Prox ECA 115.8/20 cm/sec. Prox ECA 69.1/12.6 cm/sec. Rt. Vert. 97.4/37.1 cm/sec. Right Extracranial There is intimal thickening but no significant atherosclerotic plaque noted in the right common carotid artery. There is heterogeneous, irregular atherosclerotic plaque noted in the right internal carotid artery. The atherosclerotic plaque causes acoustic shadowing. There is heterogeneous, irregular atherosclerotic plaque noted in the right external carotid artery. Antegrade flow is noted in the right vertebral artery. Left Extracranial There is intimal thickening but no significant atherosclerotic plaque noted in the left common carotid artery. There is homogeneous, smooth atherosclerotic plaque noted in the left internal carotid artery. There is homogeneous, smooth atherosclerotic plaque noted in the left external carotid artery. Left vertebral artery has bidiectional wabeorm noted. VL/Carotid Duplex Ultrasound Interpretation Summary Moderate (50-69%) stenosis right extracranial internal carotid. Mild (<50%) zachariah nosis left extracranial internal carotid. Flow within the right verterbral artery is anteg rade. Flow within the left verterbral artery is bidirectional, consistent with subclavian steal pheno madelin. Ordering Physician: Joon Serna Referring Physician: Hua Munroe M.D. Performed By: Deana Mars RVT
== END | disposition home or self-care (01) ==
PROVIDERS: PCP Internal Medicine; Referring Provider Surgery Vascular Surgery; Visit Provider Surgery Vascular Surgery
DX: I71.40 Abdominal aortic aneurysm, without rupture, unspecified (principal); I73.9 Peripheral vascular disease, unspecified; I65.23 Occlusion and stenosis of bilateral carotid arteries; Z86.718 Personal history of other venous thrombosis and embolism
CPT/HCPCS: 93880; 93922; 93978

== ENCOUNTER → 2024-08-07 | Outpatient (CLI) | payer MEDICARE, SELFPAY ==
--- NOTE | 2024-08-07 14:15 | CT_ITS ---
INDICATION: Chest and back pain EXAMINATION: CTA abdomen and pelvis - TECHNIQUE: Routine abdominal CT angiogram protocol was performed with IV contrast. MIP images provided. A radiation dose optimization technique was used for this scan. IV Contrast dosage and agent: 100 mL Isovue-370 contrast Radiation dose DLP mGy / cm. COMPARISON: 05/06/2023. FINDINGS: Lung bases: Normal. Liver: Normal. No bile ductal dilatation. Gallbladder: Normal. Spleen: Normal. Adrenal gland: Normal. Kidneys: Normal. No hydronephrosis or stone formation. Pancreas:Normal. Bowel gas pattern: Nonobstructive. Retained stool noted throughout the colon. Appendix: Appendix not identified. No inflammatory changes along the cecum present. Free air: None. Free fluid: None. Pelvis: Pelvic organs: No mass lesion noted. Bone survey: No aggressive bony lesions. No acute fractures. 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 Bilateral hip replacements free of complication Adenopathy: No significant pathologic adenopathy detected. Other: None. Vascular: There is a peripherally calcified infrarenal abdominal aortic aneurysm measuring 5.05 x 4.94 cm in greatest transverse dimensions. This represents a slight increase in size compared to the previous study. It again measures approximately 8 cm in length. No retroperitoneal fluid to suspect leak. CT/CTA Abd/Pelvis W/WO Contrast IMPRESSION: Slight increase in size of a previously noted infrarenal abdominal aortic aneurysm with mural thrombus and peripheral calcifications. On the previous study it measured 4.6 cm in greatest dimension on current study it measures 5.05 cm in greatest dimension. No retroperitoneal fluid to suspect a leak. No suspicious solid organ abnormality No free intraperitoneal fluid, air, or suspicious adenopathy Retained stool Degenerative bony changes Electronically Signed: Michael Joseph MD at 14:53 EST ,
--- NOTE | 2024-08-07 14:16 | ART_ITS ---
Reason For Study: pvd Procedure A bilateral lower extremity continuous wave Doppler with analog waveform analysis and ankle brachial indexes. Left Segmental Pressures Left brachial= 134mmHg. Left posterior tibial artery = 151mmHg. Left dorsalis pedis artery = 156mmHg. Left digit = 117 mmHg. The left posterior tibial artery waveforms are biphasic. The left dorsalis pedis waveforms are triphasic. Right Segmental Pressures Right brachial= 145mmHg. Right posterior tibial artery = 145mmHg. Right dorsalis pedis artery = 155mmHg. Right digit = 98 mmHg. The right posterior tibial artery waveforms are biphasic. The right dorsalis pedis waveforms are triphasic. Indices The right ankle brachial index by the posterior tibial artery is 1.00. The right ankle brachial index by the dorsalis pedis is 1.07. The right digital-brachial index is 0.68. The left ankle brachial index by the posterior tibial artery is 1.04. The left ankle brachial index by the dorsalis pedis is 1.08. The left digital-brachial index is 0.81. VL/Ankle Brachial Index Interpretation Summary Resting ankle-brachial indices appear bilaterally normal. Ordering Physician: Joon Serna Referring Physician: Hua Munroe M.D. Performed By: Armin Moreno RVT
[2024-08-07 14:42] LABS: CREATININE FINGERSTICK < 1.0 mg/dL (0.55-1.02); EGFR FINGERSTICK > 60.0000 mL/min (>60)
== END | disposition home or self-care (01) ==
LOC: CT 14:14
PROVIDERS: PCP Internal Medicine; Referring Provider Surgery Vascular Surgery; Visit Provider Surgery Vascular Surgery
DX: Z01.812 Encounter for preprocedural laboratory examination (principal); I74.2 Embolism and thrombosis of arteries of the upper extremities; I71.43 Infrarenal abdominal aortic aneurysm, without rupture; I65.23 Occlusion and stenosis of bilateral carotid arteries; I73.9 Peripheral vascular disease, unspecified; K21.9 Gastro-esophageal reflux disease without esophagitis; E78.70 Disorder of bile acid and cholesterol metabolism, unspecified; I10 Essential (primary) hypertension; Z86.718 Personal history of other venous thrombosis and embolism; F32.A Depression, unspecified
CPT/HCPCS: 74174; 93922; Q9967

== ENCOUNTER 2025-01-14 19:38 | Emergency (ER) | payer MEDICARE, SELFPAY ==
[2025-01-14 19:42] VITALS: BP 100/62; PULSE 98; RESP 19; TEMP 36.6; O2SAT 96; BMI 21.2
[2025-01-14 19:48] VITALS: BP 100/62; PULSE 95; RESP 19; TEMP 36.6; O2SAT 96
[2025-01-14 20:36] LABS: Mucous, Urine 0 SEEN /hpf (<or=2+); Red Blood Cells-Urine 0 SEEN /hpf (0-5); Squamous Epithelial Cells - UA 0 SEEN /hpf (5-10)
--- NOTE | 2025-01-14 20:41 | EKG12_ITS ---
Test Reason : DYSRHYTHMIA Blood Pressure : */* mmHG Vent. Rate : 83 BPM Atrial Rate : 83 BPM P-R Int : 116 ms QRS Dur : 106 ms QT Int : 396 ms P-R-T Axes : 70 52 6 degrees QTcB Int : 465 ms Normal sinus rhythm Normal ECG Confirmed by RAMY SHANE, HECTOR ([id number]), online content editor LISSETTE CAMPOS ([id number]) on 01/15/2025 8:21:23 AM Referred By: Frank Erazo Confirmed By: HECTOR MCCANN MD
--- NOTE | 2025-01-14 20:41 | CT_ITS ---
PROCEDURE: CTA CHEST W/WO CONTRAST 01/14/2025 REASON FOR EXAM: DYSPNEA, RECENT SURGERY TECHNIQUE: CTA axial imaging of the chest with intravenous contrast. Multiplanar and multisequence images were obtained. PATIENT PREPARATION: Per protocol One or more dose reduction techniques were used (e.g., Automated exposure control, adjustment of the mA and/or kV according to patient size, use of iterative reconstruction technique). CONTRAST: Omnipaque 350 VOLUME: 100 mL Not Provided Gauge IV RADIATION DOSE SUMMARY: . COMPARISON: None FINDINGS: Hardware: None Lymph nodes: No suspicious adenopathy Heart: No cardiomegaly. Severe coronary artery calcifications. Thoracic Aorta: No thoracic aortic aneurysm or dissection. Moderate atherosclerotic calcifications. Pulmonary Vessels: No large central pulmonary emboli are identified. Contrast timing is suboptimal for evaluation of more distal branches. Most Proximal Level of Embolus (if embolus present): Absent Lungs and Airways: Central airways are patent without endobronchial lesions. Moderate upper lobe predominant centrilobular emphysema. Biapical scarring. No focal consolidation. No pneumothorax. Small pleural effusion with atelectasis.. No suspicious pulmonary nodules. Upper Abdomen: Partially imaged juxtarenal aortic aneurysm, with irregularity along its course, likely from recent postoperative changes. Bones: Degenerative changes of the thoracic spine. CT/CTA Chest W/WO Contrast IMPRESSION: 1. No evidence of pulmonary embolism. 2. Small left pleural effusion with atelectasis. 3. Moderate emphysema. 4. Partially imaged juxtarenal aortic aneurysm with wall irregularity, likely f rom recent postoperative changes. Reading Location: [facility]
[2025-01-14 20:43] LABS: Color, Urine Yellow (Yellow); Glucose, Dipstick Normal (Normal); Ketone-Dipstick Negative (Negative); Leukocyte Esterase-Dipstick 500 /ul (Negative); Nitrite-Dipstick Negative (Negative); Occult Blood-Urine 25 /ul (Negative); Protein-Dipstick 30 mg/dl (Negative); Urine Bilirubin Dipstick Negative (Negative); Urine Clarity Clear (Clear); Urine Urobilinogen 1 mg/dl (Normal)
[2025-01-14 20:48] VITALS: BP 125/74; PULSE 101; RESP 18; TEMP 36.6; O2SAT 94
[2025-01-14 21:00] VITALS: BP 125/74; PULSE 101; RESP 18; TEMP 36.6; O2SAT 94
[2025-01-14 21:01] LABS: Absolute Lymphocyte Count 1.34 X10^3/uL (0.83-4.51); Absolute Neutrophil Count 8.9 X10^3/uL (2.0-7.7); Basophil# 0.04 X10^3/uL; Basophil% 0.4 % (0-1); Eosinophil# 0.17 X10^3/uL; Eosinophils% 1.5 % (0-5); Hematocrit 35.8 % (37-47); Hemoglobin 12.2 g/dL (12.0-15.0); Lymphocyte # 1.34 X10^3/ul (0.83-4.51); Mean Corp Hgb Conc 34.1 g/dL (32-36); Mean Corpuscular Hgb 30.2 pg (27.0-32.0); Mean Corpuscular Volume 88.6 fL (81-99); Mean Platelet Vol. 9.5 fl (6.2-12.0); Monocyte# 0.42 X10^3/uL; Monocyte% 3.8 % (0-10); NRBC Flagged by Analyzer 0 % (0-5); Neutrophil # 8.93 X10^3/uL (2.7-7.7); Neutrophil % 79.9 % (47-70); Platelet Count 346 K/mm3 (150-450); RBC Distribution Width CV 12.5 % (11.6-14.6); RBC Distribution Width SD 40.2 fl (35.1-43.9); Red Blood Count 4.04 M/mm3 (4.2-5.4); White Blood Count 11.2 K/mm3 (4.4-11.0)
[2025-01-14 21:24] LABS: Anion Gap 11 (5-15); BUN 9 mg/dL (4-19); BUN/Creat Ratio 12.5 RATIO (10-20); Calcium,Total 9.3 mg/dL (7.6-11.0); Carbon Dioxide 24.6 mmol/L (21.0-32.0); Chloride 97 mmol/L (98-108); Creatinine, Serum 0.74 mg/dL (0.70-1.20); EST Glomerular Filtration Rate 87 (>60); Glucose 152 mg/dL (70-99); Potassium 3.6 mmol/L (3.3-5.1); Sodium Level 133 mmol/L (133-145); Troponin T High Sensitivity 25 ng/L (<=14)
[2025-01-14] MEDS: 0.9% Normal Saline (1000mL) 1,000 ML 999 ML IV (21:28)
--- NOTE | 2025-01-14 21:33 | EX.ED.DYSGE1 ---
HPI <GRACE Orlando - Last Filed: 01/14/25 22:02> History of Present Illness Chief Complaint: General Illness Narrative Narrative: Patient presenting today due to an episode of dyspnea, itching to her hands and groin, and diaphoresis that occurred this evening. She reports that the whole episode lasted about 30 minutes and then resolved. Her daughter became concerned and called EMS, she was then brought here for evaluation. She just had an abdominal aneurysm repair performed by Dr. Covarrubias at the [facility]. This was done on 01/04/2025, she was discharged home yesterday. She denies having any abdominal pain, nausea, vomiting, fevers, chills, or urinary symptoms since being home. She currently has no acute complaints, she denies any history of blood clots. [facility] <GRACE Orlando - Last Filed: 01/14/25 22:02> [facility] Medical History (Updated 01/15/25 @ 00:[address] Frank Erazo, ) Hypovolemia Hypertension Abdominal aneurysm Esophageal stricture Atherosclerosis of coronary artery of [place] heart without angina pectoris Aortoiliac stenosis Right bundle branch block (RBBB) Peripheral vascular occlusive disease Essential (primary) hypertension Nicotine dependence Fibromuscular dysplasia of cervicocranial artery Abdominal aortic aneurysm (AAA) Migraine Hyperlipidemia Gastroesophageal reflux disease Anxiety disorder Home Medications ?Medication ?Instructions ?Recorded ?Last Taken ?Type atorvastatin 40 mg tablet 40 mg PO QDAY 01/15/18 Unknown History citalopram 20 mg tablet 20 mg PO QDAY 01/15/18 Unknown History metoprolol tartrate 25 mg tablet 25 mg PO BID #180 tabs 05/27/19 06/03/20 History aspirin 81 mg tablet,delayed 81 mg PO QDAY #90 tabs 06/09/20 Unknown Rx release (Adult Low Dose Aspirin) losartan 50 mg tablet 50 mg PO DAILY 11/23/20 Unknown History omeprazole 40 mg capsule,delayed 40 mg PO BID 11/23/20 Unknown History release amlodipine 2.5 mg tablet 2.5 mg PO DAILY 09/12/21 Unknown History metoprolol tartrate 50 mg tablet 50 mg PO BID 01/14/25 Unknown History metoprolol tartrate 75 mg tablet 75 mg PO BID 01/14/25 Unknown History oxycodone 5 mg tablet 5 mg PO 4X/DAY PRN PRN pain 01/14/25 Unknown History cephalexin 500 mg capsule 500 mg PO Q12 #14 CAPSULES 01/15/25 Unknown Rx Allergy/AdvReac Type Severity Reaction Status Date / Time clopidogrel (From Plavix) Allergy Mild Unknown Verified 01/14/25 19:41 sulfamethoxazole (From Allergy Mild Unknown Verified 01/14/25 19:41 Bactrim) trimethoprim (From Bactrim) Allergy Mild Unknown Verified 01/14/25 19:41 Family History Aunt Breast cancer Heart disease Brother CVA (cerebral vascular accident) Grandmother Heart disease Surgical History History of left heart catheterization (06/03/20) Status post insertion of iliac artery stent (06/03/06) History of eyftz-uopyo-hneuhhx bypass (07/21/07) History of angioplasty of peripheral vessel (03/2013) History of bunionectomy History of laparotomy History of foot surgery History of hysterectomy History of tonsillectomy History of appendectomy Hx of bilateral hip replacements Social History Smoking Status: Former smoker alcohol intake: never ROS <GRACE Orlando - Last Filed: 01/14/25 22:02> ROS ED Constitutional Constitutional ED: Denies chills or fever(s) Cardiovascular Cardiovascular: Denies chest pain Respiratory/Chest Respiratory/Chest: Reports dyspnea; Denies cough Gastrointestinal Gastrointestinal: Denies abdominal pain, nausea or vomiting Genitourinary Genitourinary ED: Denies dysuria, hematuria or urinary urgency Musculoskeletal Musculoskeletal: Denies arthralgias or myalgias Integumentary Reports rash Neurologic Neurologic: Denies weakness EXAM <GRACE Orlando - Last Filed: 01/14/25 22:02> Physical Exam Const Vital Signs: 01/14/25 19:42 01/14/25 19:42 01/14/25 19:48 Temperature 97.9 F 97.9 F Temperature Source Oral Oral Pulse Rate 98 95 Respiratory Rate 19 H 19 H Respiratory Effort Normal Respiratory Pattern Normal Blood Pressure 100/62 100/62 Blood Pressure Mean 74 74 Pulse Ox 96 96 Oxygen Delivery Method Room Air Room Air 01/14/25 20:48 01/14/25 21:00 01/14/25 23:00 Temperature 97.9 F 97.9 F Temperature Source Oral Oral Pulse Rate 101 H 101 H 98 Respiratory Rate 18 18 18 Respiratory Effort Respiratory Pattern Blood Pressure 125/74 H 125/74 H 138/76 H Blood Pressure Mean 91 91 96 Pulse Ox 94 94 97 Oxygen Delivery Method Room Air Room Air Room Air 01/15/25 00:35 Temperature 98.6 F Temperature Source Pulse Rate 92 Respiratory Rate 16 Respiratory Effort Respiratory Pattern Blood Pressure 110/85 H Blood Pressure Mean 93 Pulse Ox 98 Oxygen Delivery Method Positive well nourished, well developed and no apparent distress General Appearance ED: well developed HEENT Reports normocephalic and head/scalp atraumatic Mouth ED: Yes moist mucous membranes normal Eyes PERRL and EOMs intact bilaterally Neck full ROM and supple Chest Wall inspection of chest normal Resp normal respiratory effort and clear to auscultation bilaterally Cardio regular rate and regular rhythm GI soft to palpation, non-tender, non-distended and no masses GI Narrative: Intact surgical incision to the abdomen without any dehiscence, surrounding erythema, warmth, or signs of infection. Back/Spine normal ROM and normal to inspection Extremity normal to inspection and full ROM Neuro oriented x3, CN's II-XII intact bilaterally, moves all extremities, no focal motor deficits and no sensory deficits noted Sensorium / Orientation: awake and alert Psych mental status grossly normal and thought process normal Skin Skin Narrative: Urticarial rash to the bilateral groin, worse on the left <Dr. Frank Erazo, DO - Last Filed: 01/15/25 01:50> Physical Exam Const Vital Signs: 01/14/25 19:42 01/14/25 19:42 01/14/25 19:48 Temperature 97.9 F 97.9 F Temperature Source Oral Oral Pulse Rate 98 95 Respiratory Rate 19 H 19 H Respiratory Effort Normal Respiratory Pattern Normal Blood Pressure 100/62 100/62 Blood Pressure Mean 74 74 Pulse Ox 96 96 Oxygen Delivery Method Room Air Room Air 01/14/25 20:48 01/14/25 21:00 01/14/25 23:00 Temperature 97.9 F 97.9 F Temperature Source Oral Oral Pulse Rate 101 H 101 H 98 Respiratory Rate 18 18 18 Respiratory Effort Respiratory Pattern Blood Pressure 125/74 H 125/74 H 138/76 H Blood Pressure Mean 91 91 96 Pulse Ox 94 94 97 Oxygen Delivery Method Room Air Room Air Room Air 01/15/25 00:35 Temperature 98.6 F Temperature Source Pulse Rate 92 Respiratory Rate 16 Respiratory Effort Respiratory Pattern Blood Pressure 110/85 H Blood Pressure Mean 93 Pulse Ox 98 Oxygen Delivery Method [facility] <GRACE Orlando - Last Filed: 01/14/25 22:02> [facility] Narrative Medical decision making narrative: Patient presenting today due to an episode of itching to her hands and groin, feeling sweaty, and feeling diaphoretic that lasted about 30 minutes at home. She does have a history of anxiety, she has had panic attacks in the past. She is currently asymptomatic. She just had an abdominal aneurysm repair performed on 01/04, her abdominal incision is without any dehiscence or signs of infection. She does have a mild urticarial rash to her groin that is worse on the left. She did report feeling mildly dyspneic with ambulating to the bathroom according to the nurse, given her recent surgery, workup will be obtained to rule out PE and infiltrate. We will obtain a chest CTA. Cardiac labs will be obtained. She also reported concerns for UTI as she was told at the hospital that she was developing a UTI but they never treated it. She denies urinary symptoms. Workup currently pending at this time and handed off to attending physician. Lab Data Attestation: I reviewed the patient's lab results. Lab results narrative: WBC 11.2, initial troponin 25 Labs: Laboratory Results - last 24 hr 01/14/25 01/14/25 01/14/25 20:25 20:50 23:10 WBC 11.2 H RBC 4.04 L Hgb 12.2 Hct 35.8 L MCV 88.6 MCH 30.2 MCHC 34.1 RDW Std Deviation 40.2 RDW Coeff of Alondra 12.5 Plt Count 346 MPV 9.5 Immature Gran % (Auto) 2.400 H Neut % (Auto) 79.9 H Lymph % (Auto) 12.0 L Mccreary % (Auto) 3.8 Eos % (Auto) 1.5 Baso % (Auto) 0.4 Absolute Neuts (auto) 8.9 H Absolute Lymphs (auto) 1.34 Nucleated RBC % 0 Sodium 133 Potassium 3.6 Chloride 97 L Carbon Dioxide 24.6 Anion Gap 11 BUN 9 Creatinine 0.74 Estim Creat Clear Calc 56.50 Est GFR (MDRD) Non-Af 87 BUN/Creatinine Ratio 12.5 Glucose 152 H Calcium 9.3 Troponin T High Sens 25 H Troponin T Hi Sens 2 Hr 25 H Urine Color Yellow Urine Clarity Clear Urine pH 6.0 Ur Specific Union 1.010 Urine Protein 30 H Urine Glucose (UA) Normal Urine Ketones Negative Urine Occult Blood 25 H Urine Nitrite Negative Urine Bilirubin Negative Urine Urobilinogen 1 H Ur Leukocyte Esterase 500 H Urine RBC 0 SEEN Urine WBC 5-10 SEEN Ur Squamous Epith Cells 0 SEEN Urine Bacteria 1+ Urine Mucus 0 SEEN Radiography Diagnostic Testing: Clinical Impression(s) from Imaging Studies Chest CTA 01/14/25 20:41 IMPRESSION: 1. No evidence of pulmonary embolism. 2. Small left pleural effusion with atelectasis. 3. Moderate emphysema. 4. Partially imaged juxtarenal aortic aneurysm with wall irregularity, likely from recent postoperative changes. Reading Location: [facility] EKG Initial EKG: Comments: 83 bpm, normal sinus rhythm, no ST elevation, interpreted by attending ED physician <Dr. Frank Erazo, DO - Last Filed: 01/15/25 01:50> [facility] MDM Narrative Medical decision making narrative: Patient presenting today due to an episode of itching to her hands and groin, feeling sweaty, and feeling diaphoretic that lasted about 30 minutes at home. She does have a history of anxiety, she has had panic attacks in the past. She is currently asymptomatic. She just had an abdominal aneurysm repair performed on 01/04, her abdominal incision is without any dehiscence or signs of infection. She does have a mild urticarial rash to her groin that is worse on the left. She did report feeling mildly dyspneic with ambulating to the bathroom according to the nurse, given her recent surgery, workup will be obtained to rule out PE and infiltrate. We will obtain a chest CTA. Cardiac labs will be obtained. She also reported concerns for UTI as she was told at the hospital that she was developing a UTI but they never treated it. She denies urinary symptoms. Workup currently pending at this time and handed off to attending physician. Supervisory Physician Note Patient was seen and examined with the Advanced Practice Provider. Nursing notes and vital signs have been reviewed. Pertinent old records have been reviewed. I agree with the essential elements of the LACIE's history, physical exam, assessment, and plan. The differential diagnosis and management options were discussed with the LACIE. I participated in determining and agree with the management, procedures, final impression and disposition as documented. See changes noted by me. Please see addendum or separate note for any additional details. 69-year-old female with past medical history of HTN, HTN, HLD, CAD, anxiety, recent abdominal aneurysm repair on 01/04/2025 presents for evaluation of an episode of dyspnea, bilateral hand itching. Associated symptom was mild diaphoresis. Episode lasted about for 30 minutes. Episode happened while making a sandwich. She denies any worsening or new abdominal pain, nausea, vomiting, dysuria. No history of DVT/PE. Not on blood thinner. Per daughter, patient was told at the hospital that she had a possible early UTI but that this was not treated. Patient not endorsing any urinary symptoms. Other daughter states that the patient has been off a nicotine patch for the last week and is wondering if this is contributing to her symptoms. Gen: A&O x3, NAD Head: Normocephalic, atraumatic Eyes: No sclera icterus, conjunctiva clear, PERRL, EOMI ENT: Moist mucous membranes Neck: Trachea midline, No JVD CV: RRR, no murmurs, no peripheral edema Resp: Lungs CTA BL, no w/r/c GI: Abd soft, non-distended, minimally tender over her large left lateral surgical incision-healing well without signs of cellulitis-patient states this is the same tenderness she has had since surgery, no r/r/g : No CVA tenderness Musc: Full ROM, no deformity Skin: Warm, dry Neuro: Alert, oriented, grossly intact, sensation intact Psych: Cooperative, appropriate mood and affect Differential diagnosis includes but is not limited to allergic reaction, anxiety reaction, nicotine withdrawal, PE, pneumonia, low suspicion for ACS-patient not having chest pain. Patient is not having any worsening or new abdominal pain. Given reports of possible early UTI at outlying facility will obtain UA. Patient currently not endorsing any urinary symptoms. Laboratory workup ordered including CTA chest given patient's recent surgery and a higher probability of PE. Will give NS bolus for contrast load. EKG shows normal sinus rhythm without any acute ischemic changes. CBC with mild leukocytosis 11.2. No anemia. BMP relatively unremarkable. UA positive for UTI. Urine culture sent. Keflex ordered. Will place patient on Keflex. Troponin 25 x 2. Patient is not having chest pain. She recently had a AAA surgery I suspect this may be the cause of her mildly elevated troponin. CTA chest negative for PE. Patient has small left pleural effusion with atelectasis. Moderate emphysema. Partially imaged juxtarenal aortic aneurysm with water regularly, likely from recent postoperative changes. At this point in time, no etiology for patient's episode of dyspnea. On reexamination, she is asymptomatic. Patient stable to discharge home. She was updated of all results. Keflex prescription ordered. Follow-up with PCP. Return back to the ED if symptoms change or worsen. Family and patient confirmed understand the plan. Impression: 1. Episode of dyspnea, resolved 2. Recent AAA repair 3. UTI Lab Data Labs: Laboratory Results - last 24 hr 01/14/25 01/14/25 01/14/25 20:25 20:50 23:10 WBC 11.2 H RBC 4.04 L Hgb 12.2 Hct 35.8 L MCV 88.6 MCH 30.2 MCHC 34.1 RDW Std Deviation 40.2 RDW Coeff of Alondra 12.5 Plt Count 346 MPV 9.5 Immature Gran % (Auto) 2.400 H Neut % (Auto) 79.9 H Lymph % (Auto) 12.0 L Mccreary % (Auto) 3.8 Eos % (Auto) 1.5 Baso % (Auto) 0.4 Absolute Neuts (auto) 8.9 H Absolute Lymphs (auto) 1.34 Nucleated RBC % 0 Sodium 133 Potassium 3.6 Chloride 97 L Carbon Dioxide 24.6 Anion Gap 11 BUN 9 Creatinine 0.74 Estim Creat Clear Calc 56.50 Est GFR (MDRD) Non-Af 87 BUN/Creatinine Ratio 12.5 Glucose 152 H Calcium 9.3 Troponin T High Sens 25 H Troponin T Hi Sens 2 Hr 25 H Urine Color Yellow Urine Clarity Clear Urine pH 6.0 Ur Specific Union 1.010 Urine Protein 30 H Urine Glucose (UA) Normal Urine Ketones Negative Urine Occult Blood 25 H Urine Nitrite Negative Urine Bilirubin Negative Urine Urobilinogen 1 H Ur Leukocyte Esterase 500 H Urine RBC 0 SEEN Urine WBC 5-10 SEEN Ur Squamous Epith Cells 0 SEEN Urine Bacteria 1+ Urine Mucus 0 SEEN Radiography Diagnostic Testing: Clinical Impression(s) from Imaging Studies Chest CTA 01/14/25 20:41 IMPRESSION: 1. No evidence of pulmonary embolism. 2. Small left pleural effusion with atelectasis. 3. Moderate emphysema. 4. Partially imaged juxtarenal aortic aneurysm with wall irregularity, likely from recent postoperative changes. [facility] Triage Chief Complaint: General Illness ED Midlevel Provider: Candice Arias ED Provider: Frank Erazo Dx/Rx/DC Orders Clinical Impression: Shortness of breath, UTI (urinary tract infection) Instructions: Urinary Tract Infections in Women, ED Dyspnea Prescriptions: New cephalexin 500 mg capsule 500 mg PO Q12 Qty: 14 0RF No Action citalopram 20 mg tablet 20 mg PO QDAY atorvastatin 40 mg tablet 40 mg PO QDAY omeprazole 40 mg capsule,delayed release(DR/EC) 40 mg PO BID metoprolol tartrate 25 mg tablet 25 mg PO BID Qty: 180 Patient Comments: TAKE 1 TABLET BY MOUTH TWICE A DAY losartan 50 mg tablet 50 mg PO DAILY amlodipine 2.5 mg tablet 2.5 mg PO DAILY metoprolol tartrate 50 mg tablet 50 mg PO BID oxycodone 5 mg tablet 5 mg PO 4X/DAY PRN PRN (Reason: pain) metoprolol tartrate 75 mg tablet 75 mg PO BID aspirin [Adult Low Dose Aspirin] 81 mg tablet,delayed release (DR/EC) 81 mg PO QDAY Qty: 90 4RF Primary Care Provider: Hua Munroe Referrals: Hua Munroe MD [Primary Care Provider] - 3-5 Days Activity Restrictions/Additional Instructions: Follow-up with primary care physician. Return back to ED if symptoms change or worsen. Print Language: Mosotho Disposition Disposition: Home, Self Care Discharge Date/Time: 01/15/25 00:39
[2025-01-14 22:17] LABS: Bacteria 1+ /hpf (None Seen); White Blood Cells 5-10 SEEN /hpf (0-5)
[2025-01-14 23:00] VITALS: BP 138/76; PULSE 98; RESP 18; O2SAT 97
[2025-01-14 23:57] LABS: Troponin T High Sens 2 HR 25 ng/L (<=14)
[2025-01-14] MEDS: Cephalexin 250 MG Capsule 500 MG PO (23:57)
[2025-01-15 00:35] VITALS: BP 110/85; PULSE 92; RESP 16; TEMP 37; O2SAT 98
== END 2025-01-15 00:39 | disposition home or self-care (01) ==
PROVIDERS: Physician Assistant; Emergency Provider Surgery; PCP Internal Medicine; Referring Provider Surgery; Visit Provider Surgery
DX: R06.02 Shortness of breath (principal); N39.0 Urinary tract infection, site not specified; I25.10 Atherosclerotic heart disease of native coronary artery without angina pectoris; E78.5 Hyperlipidemia, unspecified; I10 Essential (primary) hypertension; Z87.891 Personal history of nicotine dependence; F41.9 Anxiety disorder, unspecified; Z98.890 Other specified postprocedural states
CPT/HCPCS: 71275; 80048; 81001; 84484; 85025; 87086; 87088; 93005; 96360; 96361; 99285; Q9967; A4216